=== PATIENT | male | born 1990 | race Caucasian/White ===

== ENCOUNTER 2024-04-17 17:05 | Emergency (ER) | payer SELFPAY ==
[2024-04-17 17:05] VITALS: BP 129/95; PULSE 87; RESP 18; TEMP 36.9; O2SAT 100; BMI 31.9
--- NOTE | 2024-04-17 17:10 | RAD_ITS ---
EXAM: XR RIGHT SHOULDER COMPLETE, 2 OR MORE VIEWS CLINICAL INDICATION: FALL TECHNIQUE: Two or more views of the right shoulder. COMPARISON: No relevant prior studies available. FINDINGS: BONES/JOINTS: Unremarkable. No acute fracture. No subluxation. Normal alignment. Preservation of the joint space. No sclerotic or destructive changes observed. SOFT TISSUES: Unremarkable. No soft tissue swelling or gas. No radiopaque foreign body. RAD/Shoulder min 2 Views IMPRESSION: Negative right shoulder x-rays. Electronically Signed: Jass Reinoso MD at 17:53 EDT ,
[2024-04-17 19:05] VITALS: BP 130/85; PULSE 85; RESP 16; O2SAT 98
--- NOTE | 2024-04-17 20:07 | EDS_ITS ---
HPI History of Present Illness Chief Complaint: Dislocation Informant: patient Narrative Narrative: 34-year-old healthy [id number] patient states he was rollerskating yesterday and was going to fall, I reached out with both arms and caught himself against a counter, and in doing so felt an acute pain in his right shoulder and like it popped out of socket, with significant pain. He states the woman adjusted his arm and suddenly he felt like it went back into socket and his pain significantly improved right away. Within 30 minutes it started bothering him and then it gradually worsened and has been hurting all day now to the point where he is having difficulty using it. He denies any numbness or tingling. He describes the whole shoulder joint as far as where exactly it is hurting, not just in 1 part of it. Most movements hurt worse. No other injury. Never had a dislocation in the past. [facility] Medical History no medical history no medical history Home Medications ?Medication ?Instructions ?Recorded ?Last Taken ?Type naproxen 500 mg tablet (Naprosyn) 500 mg PO BID PRN pain #20 tabs 04/17/24 Unknown Rx Allergy/AdvReac Type Severity Reaction Status Date / Time amoxicillin (Amoxicillin) Allergy Swelling Verified 04/17/24 17:07 Penicillins Allergy Swelling Verified 04/17/24 17:07 Family History no significant family his Surgical History no surgical history Social History Smoking Status: Current every day smoker tobacco type: e-cigarettes ROS ROS ED Constitutional Constitutional ED: Denies chills or fever(s) Musculoskeletal Musculoskeletal: Reports extremity pain; Denies neck pain Integumentary Denies Abrasions, rash or wounds Neurologic Neurologic: Denies paresthesias or weakness EXAM Physical Exam Const Vital Signs: 04/17/24 17:05 Temperature 98.4 F Temperature Source Oral Pulse Rate 87 Respiratory Rate 18 Blood Pressure 129/95 H Blood Pressure Mean 106 Pulse Ox 100 Oxygen Delivery Method Room Air Positive well nourished and well developed General Appearance ED: well developed and NAD Neck full ROM and supple Back/Spine normal ROM and normal to inspection Extremity Extremity Narrative: Excellent range of motion of the right shoulder with some limitations at extremes. He is able to get his hand behind small of his back but he cannot resist and internal rotation due to pain. Similarly with regards to external rotation he can do it, but not resist significantly. He can raise his arm up with the negative speeds test and he has no tenderness at the biceps tendon. He is able to abduct up to 90 degrees before he has to stop. He does not have any tenderness or swelling or deformity at the acromioclavicular joint. At rest there is no reproducible bony tenderness of the shoulder girdle, nor is there subacromial tenderness, nor any deformity. Neuro oriented x3, no focal motor deficits and no sensory deficits noted Sensorium / Orientation: alert Psych mental status grossly normal and thought process normal Skin no wounds Rashes: no rashes MDM MDM MDM Narrative Medical decision making narrative: 4 view x-ray series of the right shoulder was obtained, on my interpretation they are negative for acute fracture or dislocation. Additionally there is no bony Bankart or Hill-Sachs lesions. These argue against an actual full d islocation but do not necessarily rule it out. As I discussed with the patient would be unusual for him to have a true dislocation that a nonmedical bystander was able to put back in without knowing what they were doing, but I am not telling him I can definitely rule it out. In the end the bottom line is that he could have a rotator cuff injury or other internal shoulder derangement. At this point on placing him in a sling and giving him anti-inflammatories and referring him to orthopedics. We discussed rotator cuff exercises to keep his shoulder from freezing up while in the sling. Radiography Diagnostic Testing: Clinical Impression(s) from Imaging Studies Shoulder X-Ray 04/17/24 17:10 IMPRESSION: Negative right shoulder x-rays. Electronically Signed: Jass Reinoso MD at 17:53 EDT , Discharge Plan Triage Chief Complaint: Dislocation ED Provider: Delio Hoyt Dx/Rx/DC Orders Clinical Impression: Injury of right shoulder Instructions: ED Dislocation: Shoulder (Reduced), ED Sling Prescriptions: New naproxen [Naprosyn] 500 mg tablet 500 mg PO BID PRN (Reason: pain) Qty: 20 0RF Primary Care Provider: Care Physician,No Primary Referrals: Sandeep Quinonez MD [Med Staff - Active Staff] - As soon as possible Print Language: Persian Disposition Disposition: Home, Self Care
[2024-04-17] MEDS: Naproxen 500 MG Tablet PO (20:29)
== END 2024-04-17 20:29 | disposition home or self-care (01) ==
PROVIDERS: Emergency Provider Emergency Medicine; Visit Provider Emergency Medicine
DX: S49.91XA Unspecified injury of right shoulder and upper arm, initial encounter (principal); F17.290 Nicotine dependence, other tobacco product, uncomplicated; Y93.51 Activity, roller skating (inline) and skateboarding
CPT/HCPCS: 73030; 99282